=== PATIENT | female | born 1945 | race Caucasian/White ===

== ENCOUNTER → 2024-12-21 14:55 | Outpatient (REF) | payer MEDICARE, OTHER, SELFPAY | LOC: WDC 14:55 | PROVIDERS: ATTENDING PHYSICIAN Obstetrics & Gynecology Gynecology; FAMILY PHYSICIAN Physician Assistant Medical | DX: Z12.31 Encounter for screening mammogram for malignant neoplasm of breast (principal) | CPT/HCPCS: 77063; 77067 ==

== ENCOUNTER → 2025-01-23 12:43 | Outpatient (REF) | payer MEDICARE, OTHER, SELFPAY | LOC: RAD 12:43 | PROVIDERS: ATTENDING PHYSICIAN Physical Medicine & Rehabilitation; FAMILY PHYSICIAN Physician Assistant Medical | DX: Z78.0 Asymptomatic menopausal state (principal) | CPT/HCPCS: 77080 ==

== ENCOUNTER 2025-02-02 06:16 | Day surgery (SDC) | payer MEDICARE, OTHER, SELFPAY | END 2025-02-02 12:26 | disposition home or self-care (01) | LOC: GI 06:16 | PROVIDERS: ATTENDING PHYSICIAN Internal Medicine | DX: Z12.11 Encounter for screening for malignant neoplasm of colon (principal); Q43.8 Other specified congenital malformations of intestine | CPT/HCPCS: G0121 ==

== ENCOUNTER 2025-07-13 14:13 | Emergency (ER) | payer MEDICARE, OTHER, SELFPAY ==
[2025-07-13 14:15] VITALS: BP 154/77
[2025-07-13 14:37] LABS: Hematocrit 38.0 % (37.0-47.0); Hemoglobin 12.8 g/dL (12.0-16.0); Mean Corp Hgb Conc. 33.7 g/dL (33.0-37.0); Mean Corpuscular Volume 91.8 fL (81.0-99.0); Nucleated Red Blood Cells % 0 %; Platelet Count 191 10^3/uL (130-400); Red Cell Dist. Width 13.2 % (11.5-14.5)
[2025-07-13 14:50] LABS: ALT (SGPT) 30 U/L (0-35); AST (SGOT) 29 U/L (14-36); Albumin 4.6 g/dl (3.5-5.0); Alkaline Phosphatase 54 U/L (38-126); Blood Urea Nitrogen 26 mg/dl (7-17); Calcium 9.7 mg/dl (8.4-10.2); Carbon Dioxide 26 mmol/L (22-30); Chloride 103 mmol/L (98-107); Glucose 107 mg/dl (70-99); Lipase 48 U/L (23-300); Potassium 3.9 mmol/L (3.5-5.1); Sodium 136 mmol/L (135-145); Total Protein 6.9 g/dl (6.3-8.2); eGFR > 60.00
--- NOTE | 2025-07-13 18:02 | ED.GENMED ---
History of Present Illness
General
Chief Complaint: Abdominal Pain
Source: patient
Exam Limitations: none
Time Seen by Provider: 07/13/25 17:51
Nursing documentation reviewed up to this point in time: agreed with
History of Present Illness
History of Present Illness:
Patient to ED with RLQ abd pain. Pain started this AM. Reports sharppain to site. Has had this pain in the past, usually resolves after BM. No improvement today. Brought to ED by spouse for eval
Past History
Past History
ED Past Medical History: HTN; Negative Cancer or IDDM
ED Past Surgical History: Negative or Gynecological
Social History
Tobacco: Non-smoker
Alcohol: Occasional
Drug: None
Personal:
Living: with family
Employment: Other
Family History
Family History: Hypertension
Review of Systems
Review of Systems
Allergies reviewed?: Yes
All Other Systems: ROS reviewed and negative except as documented in HPI and ROS
Constitutional: Reports no symptoms
EENT: Reports no symptoms
Respiratory: Reports no symptoms
Cardiac: Reports no symptoms
ABD/GI: Reports abdominal pain (RLQ pain)
: Reports no symptoms
Musculoskeletal: Reports no symptoms
Skin: Reports no symptoms
Neurological: Reports no symptoms
Psychiatric: Reports no symptoms
Phy Exam
General Physical Exam
General Presentation: well appearing and no apparent distress
General age: appears stated age
General Skin: warm and dry
General Habitus: normal
General Mental: alert
Cardiovascular Exam
Cardiovascular Exam: regular rate/rhythm and no edema
Gastrointestinal Exam
Gastrointestinal Exam: normal bowel sounds, soft, no organomegaly, no pulsatile mass and non distended
Palpation: left upper quadrant: Minimal tenderness, left lower quadrant: Minimal tenderness, right upper quadrant: Minimal tenderness and right lower quadrant: Mild tenderness
Musculoskeletal Exam
Musculoskeletal Exam: full ROM and neuro vasc intact
Skin Exam
Skin Exam: normal color, warm/dry and no rash
Psychiatric Exam
Psychiatric Exam: normal mood/affect
Course
Orders/Labs/Results
Orders:
Orders
07/13/25 14:24
Complete Blood Count/With Diff Urgent
Comprehensive Metabolic Panel Urgent
Lipase Urgent
07/13/25 18:01
CT Abd/pelvis W Iv Cont Urgent
Comment:
Reason For Exam: lower abd pain
0.9% Sodium Chloride 1000 ml [Nss] 1,000 ml IV BOLUS
07/13/25 18:21
Urinalysis Reflex To Culture Urgent
Date Specimen was Collected: 07/13/25
Time Specimen was Collected: 14:18
Urine Microscopic Reflex Cult Urgent
Urine Culture Urgent
MESERET Source: U
Specimen Description:
Date Specimen was Collected: 07/13/25
Time Specimen was Collected: 14:18
Abnormal Lab Results
07/13/25 07/13/25
14:24 18:21
RBC 4.14 L 10^6/uL
(4.20-5.40)
MPV 11.1 H fL
(7.4-10.4)
BUN 26 H mg/dl
(7-17)
Glucose 107 H mg/dl
(70-99)
Urine Ketones 3+ A
(Negative)
Urine Bacteria (Reflex) Moderate A
(Negative)
Urine Albumin (Reflex) 1+ A
(Neg - Trace)
07/13/25 14:24
07/13/25 14:24
Vital Signs
Initial and Last Documented VS:
Initial Vital Signs
Temp Pulse Resp BP Pulse Ox
97.7 F 73 18 154/77 100
07/13/25 14:15 07/13/25 14:15 07/13/25 14:15 07/13/25 14:15 07/13/25 14:15
Last Documented Vital Signs
Temp Pulse Resp BP Pulse Ox
97.7 F 97 18 140/72 98
07/13/25 14:15 07/13/25 18:29 07/13/25 18:29 07/13/25 20:00 07/13/25 18:29
*Radiology
Radiology exam reviewed: radiology read reviewed
*Pulse Oximetry
SaO2: 100
Oxygen Mode of Delivery: Room air
Patient hypoxic: no
*Critical Care Note
Total Time (30-74mins, 75-104mins- exclusive of procedures): Not Applicable
Update Note
Update Note:
Patient to ED wtih complaint of right lwoer abdominal pain. VSS, she remains afebrile. No n/v/d while in ED. Labs reveiwed, no concerning findings. CT neg for acute process. Does show severe constipation thoughout. This is most likley
contributing to her symtpoms. Discussed this will her. SHe will try a course of benefiber or stool softener such as colace. Will follow upw tih [facility] instructions on s/s to return to ED and she is agreeable to plan
ED Attending Note
-
Portions of this chart may have been created with voice recognition software.� Occasional wrong word or��sound alike� substitutions may have occurred due to the inherent limitations of voice recognition software.
Discharge Plan
Departure
Patient Disposition: Home (Routine Discharge)
Date of Disposition: 07/13/25
Time of Disposition: 20:13
Patient with high blood pressure during this ER visit?: No
Condition: Good
Covid-19: Not Applicable
Discharge Problem:
Abdominal pain, Constipation
Instructions: Constipation, Adult (DC), Abdominal Pain
Prescriptions:
No Action
cholecalciferol (vitamin D3) [Vitamin D3] 400 UNITS tablet
2,000 units PO DAILY
ferrous sulfate [Iron (ferrous sulfate)] 325 mg (65 mg iron) Tablet
325 mg PO DAILY
losartan 100 mg Tablet
100 mg PO DAILY
coenzyme Q10 [CoQ-10] 100 mg Capsule
100 mg PO DAILY
Centrum Women 18-400 mg-mcg Tablet
1 tab PO DAILY
Referrals:
Moris Nam PA-C [Family Provider, Family Practice] - Follow up in 2-3 days
Activity Restrictions/Additional Instructions:
Return to the emergency department immediately for any changes in/worsening of your symptoms.
Interventions
Interventions:
*Risk Screen - Suicide Last Done: 07/13/25 14:15
*General Assessment Last Done: 07/13/25 14:15
*Neglect/Abuse Screening Last Done: 07/13/25 14:15
*ED- Fall Risk Assessment Last Done: 07/13/25 18:28
*ED COVID-19 Vaccine History Last Done: 07/13/25 18:28
*Nursing Disposition Last Done: 07/13/25 20:20
MO-Tppoid-Cwpzyotwmn Assessment Last Done: 07/13/25 18:28
Discharge Date and Time
Discharge Date/Time: 07/13/25 20:22
Print Language: SERBIAN
[2025-07-13] MEDS: NSS 1000 IV (18:27)
[2025-07-13 18:29] VITALS: BP 145/78
[2025-07-13 18:53] LABS: Urine Character Clear (Clear)
[2025-07-13 19:18] VITALS: BP 148/67
[2025-07-13 19:32] LABS: Urine Red Blood Cell 0-2 /HPF (0-2); Urine White Cell 0-2 /HPF (0-5)
[2025-07-13 20:00] VITALS: BP 140/72
== END 2025-07-13 20:22 | disposition home or self-care (01) ==
LOC: EMR 14:13
PROVIDERS: Emergency Medicine; EMERGENCY PHYSICIAN Emergency Medicine; FAMILY PHYSICIAN Physician Assistant Medical
DX: R10.9 Unspecified abdominal pain (principal); K59.00 Constipation, unspecified; I10 Essential (primary) hypertension; Z82.49 Family history of ischemic heart disease and other diseases of the circulatory system
CPT/HCPCS: 99284; 96360; 74177; 80053; 81003; 81015; 83690; 85025; 87086; Q9967